=== PATIENT | female | born 1970 | race Caucasian/White ===

== ENCOUNTER 2024-11-08 09:00 | Outpatient (CLI) | payer BC, SELFPAY ==
--- NOTE | ~2024-11-08 | XR_ITS ---
XR knee LT min 4V Ordering provider: Svetlana Wetzel, MEDICAL REVIEWER History: . Left knee pain . Comparison: None. FINDINGS: BONES: No acute fracture or dislocation. JOINT SPACES: Normal. SOFT TISSUES: Normal. IMPRESSION: No acute osseous abnormality left knee. Reviewed, dictated and finalized at location A. [employer] MANAGER
== END 2024-11-08 09:01 | disposition home or self-care (01) ==
LOC: MICIMG 09:03
PROVIDERS: PCP Family Medicine; Visit Provider Nurse Practitioner Family
DX: M25.562 Pain in left knee (principal)
CPT/HCPCS: 73564